=== PATIENT | female | born 1965 | race Two or more races ===

== ENCOUNTER → 2018-01-30 | Outpatient (CLI) | payer OTHER | LOC: RAD 14:25 | PROVIDERS: ATTEND Internal Medicine Hematology & Oncology | DX: R76.12 Nonspecific reaction to cell mediated immunity measurement of gamma interferon antigen response without active tuberculosis (principal) | CPT/HCPCS: 71045 ==

== ENCOUNTER 2018-04-02 18:09 | Emergency (ER) | payer OTHER ==
[~2018-04-02] VITALS: Ht 167.6 cm; Wt 57.4 kg
[2018-04-02 18:22] VITALS: BP 132/71
[2018-04-02] MEDS ORDERED: PROPARACAINE OPHTH 0.5%, 15ML ONE (19:45)
[2018-04-02] MEDS ORDERED: PROPARACAINE OPHTH 0.5%, 15ML EACHEYE ONE (20:00)
[2018-04-02] MEDS ORDERED: FLUORESCEIN/BENOXINATE 5 ML DROPS OP ONE (20:00)
[2018-04-02] MEDS ORDERED: FLUORESCEIN OPHTHALMIC 1 MG STRIP EACHEYE ONE (20:00)
== END 2018-04-02 20:56 | disposition home or self-care (01) ==
LOC: ED 20:20
DX: H57.13 Ocular pain, bilateral (principal); H16.143 Punctate keratitis, bilateral
CPT/HCPCS: 99283

== ENCOUNTER → 2018-09-10 | Outpatient (CLI) | payer OTHER ==
[2018-09-10 15:47] LABS: MICROSCOPIC INDICATED
[2018-09-10 15:49] LABS: ALANINE AMINOTRANSFERASE 31 U/L (12-78); ANION GAP 7 mmol/L (5-15); CALCIUM 8.5 mg/dL (8.5-10.1); CHLORIDE 110 mmol/L (98-107); CHOLESTEROL, TOTAL 117 mg/dL (140-239); CREATININE 0.65 mg/dL (0.55-1.02)
[2018-09-10 16:00] LABS: ALKALINE PHOSPHATASE 118 U/L (45-117); BILIRUBIN,TOTAL 0.3 mg/dL (0.2-1.0); CHOL/HDL RATIO 1.7; HDL CHOL % 60 % (28-40); HDL CHOLESTEROL (DIRECT) 70 mg/dL (40-60); LDL CHOLESTEROL,CALCULATED 32 mg/dL (54-169); LDL/HDL RATIO 0.5 (0.5-3.0); THYROID STIMULATING HORMONE 0.926 mIU/L (0.358-3.740); TOTAL PROTEIN 7.4 g/dL (6.4-8.2); TRIGLYCERIDES 76 mg/dL (50-200); VLDL CHOLESTEROL 15 mg/dL (0-25)
[2018-09-10 16:12] LABS: BASOPHILS # (AUTO) 0.03 x10^3/uL (0-0.1); BASOPHILS % (AUTO) 0 % (0-1); EOSINOPHILS # (AUTO) 0.04 x10^3/uL (0-0.4); EOSINOPHILS % (AUTO) 1 % (1-7); LYMPHOCYTES # (AUTO) 1.48 x10^3/uL (1-3.4); LYMPHOCYTES % (AUTO) 18 % (22-44); MD NO; MEAN CORPUSCULAR HEMOGLOBIN 32.6 pg (27.0-34.8); MEAN CORPUSCULAR HGB CONC 33.8 g/dL (32.4-35.8); MEAN CORPUSCULAR VOLUME 96.6 fL (80-100); MEAN PLATELET VOLUME 8.8 fL (7.4-10.4); MONOCYTES # (AUTO) 0.29 x10^3/uL (0.2-0.8); MONOCYTES % (AUTO) 4 % (2-9); NEUTROPHILS # (AUTO) 6.36 x10^3/uL (1.8-6.8); NEUTROPHILS % (AUTO) 78 % (42-75); PLATELET COUNT 251 x10^3/uL (130-400); RED BLOOD COUNT 4.56 x10^6/uL (3.82-5.3); RED CELL DISTRIBUTION WIDTH 13.5 % (9.6-15.2)
== END | disposition home or self-care (01) ==
LOC: LAB 15:23
PROVIDERS: ATTEND Nurse Practitioner
DX: Z00.00 Encounter for general adult medical examination without abnormal findings (principal)
CPT/HCPCS: 36415; 80053; 80061; 81001; 84443; 85025

== ENCOUNTER 2019-05-30 20:12 | Emergency (ER) | payer OTHER ==
[~2019-05-30] VITALS: Ht 167.6 cm; Wt 58.4 kg
[2019-05-30 21:21] VITALS: BP 123/63
== END 2019-05-30 21:25 | disposition home or self-care (01) ==
LOC: ED 20:36
DX: L25.9 Unspecified contact dermatitis, unspecified cause (principal)
CPT/HCPCS: 99283; Q0163

== ENCOUNTER → 2019-08-19 | Outpatient (CLI) | payer OTHER | END | disposition home or self-care (01) | LOC: RAD 15:59 | PROVIDERS: ATTEND Nurse Practitioner | DX: M47.896 Other spondylosis, lumbar region (principal); M51.36 Other intervertebral disc degeneration, lumbar region; M54.5 Low back pain | CPT/HCPCS: 72100 ==

== ENCOUNTER 2019-08-23 11:51 | Outpatient (CLI) | payer OTHER ==
[2019-08-23 12:15] LABS: BASOPHILS # (AUTO) 0.03 x10^3/uL (0-0.1); BASOPHILS % (AUTO) 1 % (0-1); EOSINOPHILS # (AUTO) 0.06 x10^3/uL (0-0.4); EOSINOPHILS % (AUTO) 1 % (1-7); LYMPHOCYTES # (AUTO) 1.32 x10^3/uL (1-3.4); LYMPHOCYTES % (AUTO) 22 % (22-44); MD NO; MEAN CORPUSCULAR HEMOGLOBIN 31.9 pg (27.0-34.8); MEAN CORPUSCULAR HGB CONC 32.8 g/dL (32.4-35.8); MEAN CORPUSCULAR VOLUME 97.3 fL (80-100); MEAN PLATELET VOLUME 7.9 fL (7.4-10.4); MONOCYTES # (AUTO) 0.26 x10^3/uL (0.2-0.8); MONOCYTES % (AUTO) 4 % (2-9); NEUTROPHILS # (AUTO) 4.37 x10^3/uL (1.8-6.8); NEUTROPHILS % (AUTO) 73 % (42-75); PLATELET COUNT 254 x10^3/uL (130-400); RED BLOOD COUNT 4.51 x10^6/uL (3.82-5.3); RED CELL DISTRIBUTION WIDTH 13.5 % (9.6-15.2)
[2019-08-23 12:37] LABS: ALBUMIN 3.9 g/dL (3.4-5.0); ANION GAP 5 mmol/L (5-15); CALCIUM 8.4 mg/dL (8.5-10.1); CHLORIDE 112 mmol/L (98-107)
[2019-08-23 12:50] LABS: ALANINE AMINOTRANSFERASE 14 U/L (12-78); ALKALINE PHOSPHATASE 129 U/L (45-117); BILIRUBIN,TOTAL 0.4 mg/dL (0.2-1.0); CHOLESTEROL, TOTAL 130 mg/dL (140-239); CREATININE 0.79 mg/dL (0.55-1.02); HDL CHOL % 50 % (28-40); HDL CHOLESTEROL (DIRECT) 65 mg/dL (40-60); LDL CHOLESTEROL,CALCULATED 54 mg/dL (54-169); LDL/HDL RATIO 0.8 (0.5-3.0); TOTAL PROTEIN 7.1 g/dL (6.4-8.2); TRIGLYCERIDES 55 mg/dL (50-200); VLDL CHOLESTEROL 11 mg/dL (0-25)
== END 2019-08-23 23:59 | disposition home or self-care (01) ==
LOC: LAB 11:51
PROVIDERS: ATTEND Nurse Practitioner
DX: Z01.419 Encounter for gynecological examination (general) (routine) without abnormal findings (principal)
CPT/HCPCS: 36415; 80053; 80061; 84443; 85025

== ENCOUNTER → 2019-09-04 | Outpatient (CLI) | payer OTHER | END | disposition home or self-care (01) | LOC: CFH 13:18 | PROVIDERS: ATTEND Physical Medicine & Rehabilitation Pain Medicine | DX: M48.061 Spinal stenosis, lumbar region without neurogenic claudication (principal); M54.16 Radiculopathy, lumbar region; M51.36 Other intervertebral disc degeneration, lumbar region; F17.200 Nicotine dependence, unspecified, uncomplicated; M51.16 Intervertebral disc disorders with radiculopathy, lumbar region; M47.26 Other spondylosis with radiculopathy, lumbar region; M51.37 Other intervertebral disc degeneration, lumbosacral region | CPT/HCPCS: 72148 ==

== ENCOUNTER → 2019-09-04 | Outpatient (CLI) | payer OTHER ==
[2019-09-04 15:45] LABS: ALBUMIN 4.1 g/dL (3.4-5.0); ANION GAP 6 mmol/L (5-15); CALCIUM 8.4 mg/dL (8.5-10.1); CHLORIDE 112 mmol/L (98-107)
[2019-09-04 15:48] LABS: ALANINE AMINOTRANSFERASE 23 U/L (12-78); ALKALINE PHOSPHATASE 138 U/L (45-117); BILIRUBIN,TOTAL 0.6 mg/dL (0.2-1.0); CREATININE 0.78 mg/dL (0.55-1.02); TOTAL PROTEIN 7.4 g/dL (6.4-8.2)
== END | disposition home or self-care (01) ==
LOC: LAB 14:55
PROVIDERS: ATTEND Nurse Practitioner
DX: E83.51 Hypocalcemia (principal); R74.8 Abnormal levels of other serum enzymes; F17.200 Nicotine dependence, unspecified, uncomplicated
CPT/HCPCS: 36415; 80053; 82306; 82330; 83970; 84075; 84080

== ENCOUNTER 2020-05-01 22:39 | Emergency (ER) | payer OTHER ==
[~2020-05-01] VITALS: Ht 167.6 cm; Wt 70.0 kg
[2020-05-01 22:42] VITALS: BP 130/61
[2020-05-01] MEDS ORDERED: KETOROLAC 30 MG/1 ML IM ONE (23:00)
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
--- NOTE | 2020-05-01 23:09 | NUR ---
PT TAKEN FOR XRAY.
[2020-05-01] MEDS ORDERED: KETOROLAC 30 MG/1 ML ONE (23:21)
[2020-05-01] MEDS ORDERED: LIDODERM 5% PATCH TD ONE ×2 (23:21→23:30)
--- NOTE | 2020-05-02 01:00 | NUR ---
aysha rn: Patient/Caregiver given discharge instructions and they have confirmed that they understand the instructions. Patient ambulatory with steady gait.
== END 2020-05-02 01:02 | disposition home or self-care (01) ==
LOC: ED 05-02 00:45
DX: M54.5 Low back pain (principal); F17.210 Nicotine dependence, cigarettes, uncomplicated
CPT/HCPCS: 72110; 96372; 99283; J1885

== ENCOUNTER 2020-05-08 21:12 | Emergency (ER) | payer OTHER ==
[~2020-05-08] VITALS: Ht 167.6 cm; Wt 55.8 kg
--- NOTE | 2020-05-08 22:15 | NUR ---
assumed care of pt. pt here for LPB x1 week. pt reports that she injured her back lifting at home. she states that she was seen previously but that she is stil having pain and that it is radiating to her L leg. pt ambulatory, no othe c/o. no apparent distress. SO at bedside
[2020-05-08] MEDS ORDERED: METH4TAB6 PO (22:29)
[2020-05-08] MEDS ORDERED: METH750T2 PO (22:29)
[2020-05-08] MEDS ORDERED: KETOROLAC 30 MG/1 ML IM ONE (23:00)
[2020-05-08] MEDS ORDERED: DIAZEPAM 5 MG TABLET PO ONE (23:00)
[2020-05-08] MEDS ORDERED: LIDODERM 5% PATCH TD ONE ×2 (23:00→23:51)
[2020-05-08] MEDS ORDERED: KETOROLAC 30 MG/1 ML ONE (23:50)
[2020-05-08] MEDS ORDERED: DIAZEPAM 5 MG TABLET ONE (23:50)
--- NOTE | 2020-05-09 00:09 | NUR ---
pt has been medicated per order. pt advised not to drive after valium. SO at bedside to drive her home
[2020-05-09 00:22] VITALS: BP 119/63
== END 2020-05-09 00:26 | disposition home or self-care (01) ==
LOC: ED 21:30
DX: M54.42 Lumbago with sciatica, left side (principal)
CPT/HCPCS: 96372; 99283; J1885

== ENCOUNTER → 2020-12-14 | Outpatient (CLI) | payer OTHER ==
[~2020-12-14] MED LIST: METH-640 PO; METH4TAB6 PO
== END | disposition home or self-care (01) ==
LOC: CFH 15:46
PROVIDERS: ATTEND Physical Medicine & Rehabilitation
DX: M47.816 Spondylosis without myelopathy or radiculopathy, lumbar region (principal); M48.061 Spinal stenosis, lumbar region without neurogenic claudication
CPT/HCPCS: 72148